=== PATIENT | female | born 1990 | race Caucasian/White ===

== ENCOUNTER 2016-11-15 08:50 | Emergency (ER) | payer OTHER ==
[2016-11-15 08:56] VITALS: BP 110/62; PULSE 77; TEMP 98.2; BMI 21.4
--- NOTE | 2016-11-15 09:13 | PDOC ---
History of Present Illness - General Chief Complaint: Pain, Acute Stated Complaint: FALL/ RT KNEE Time Seen by Provider: 11/15/16 09:10 History Source: Patient Exam Limitations: No Limitations - History of Present Illness Initial Comments: 11/15/16 09:10 11/15/16 09:13 Status post fall 4 days ago , states fell down a flight of stairs with sort of a twisting and turning movement. Since that time has sustained some bruising which were not significant however right knee pain has felt painful and difficult to walk on. Has a bruise to the medial aspect of her right knee and feels some mild instability. Came to emergency department for evaluation. Denies head injury, neck injury, or other extremity issues. 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 Denies intoxication or other tripping mechanism., 11/15/16 09:37 Timing/Duration: reports: constant Severity: Yes: mild, moderate Location: reports: extremities (right knee ) Past History - Travel Traveled outside of the country in the last 30 days: No Close contact w/someone who was outside of country & ill: No - Past Medical History Allergies/Adverse Reactions: Allergies Allergy/AdvReac Type Severity Reaction Status Date / Time No Known Allergies Allergy Verified 11/15/16 08:56 Home Medications: Ambulatory Orders Cefadroxil [Cefadroxil] 500 mg PO BID 04/25/16 Anemia: Yes Asthma: No Cancer: No Cardiac Disorders: No Diabetes: No HTN: No Seizures: No Thyroid Disease: No - Surgical History Abdominal Surgery: Yes (UMBILICAL HERNIA.) - Immunization History Immunization Up to Date: Yes - Psycho/Social/Smoking Cessation Hx Anxiety: No Suicidal Ideation: No Smoking Status: No Smoking History: Never smoked Have you smoked in the past 12 months: No Number of Cigarettes Smoked Daily: 1 Information on smoking cessation initiated: No Hx Alcohol Use: No Drug/Substance Use Hx: No Substance Use Type: None Hx Substance Use Treatment: No Review of Systems - Review of Systems Able to Perform ROS?: Yes Is the patient limited Swazi proficient: Yes Constitutional: Yes: Symptoms Reported, See HPI, Malaise. No: Fever HEENTM: No: Symptoms Reported Respiratory: No: Symptoms reported Musculoskeletal: Yes: Symptoms Reported, See HPI, Joint Pain, Joint Swelling, Muscle Pain (right knee ) Neurological: Yes: See HPI. No: Symptoms reported, Numbness, Paresthesia All Other Systems: Reviewed and Negative *Physical Exam - Vital Signs Last Vital Signs Temp Pulse Resp BP Pulse Ox 98.2 F 77 18 110/62 100 11/15/16 08:54 11/15/16 08:54 11/15/16 08:54 11/15/16 08:54 11/15/16 08:54 - Physical Exam General Appearance: Yes: Nourished, Appropriately Dressed, Apparent Distress, Mild Distress HEENT: positive: [place], Normal ENT Inspection Neck: positive: Supple. negative: Tender Musculoskeletal: positive: Decreased Range of Motion. negative: Normal Inspection, CVA Tenderness Extremity: positive: Normal Capillary Refill, Tender (2 medial aspect of right knee with ecchymosis noted and swelling to the superior aspect of distal femoral condyle. No crepitus or step-offs, patella is mobile but has some swelling to the knee joint. Range of motion is limited secondary to this pain, ambulatory but walks with limp. Neurovascular intact to foot and lower extremity.). negative: Normal Inspection, Normal Range of Motion Integumentary: positive: Normal Color, Ecchymosis, Bruising Neurologic: positive: oracle manager II-XII NML intact, Fully Oriented, Alert, Normal Mood/ Affect, Normal Response, Motor Strength 5/5 *DC/Admit/Observation/Transfer Diagnosis at time of Disposition: Knee contusion Qualifiers: Encounter type: initial encounter Laterality: right Qualified Code(s): S80.01XA - Contusion of right knee, initial encounter Knee MCL sprain Qualifiers: Encounter type: initial encounter Laterality: right Qualified Code(s): S83.411A - Sprain of medial collateral ligament of right knee, initial encounter - Discharge Dispostion Disposition: HOME Condition at time of disposition: Stable Admit: No - Referrals Referrals: Elliot Sifuentes MD [Primary Care Provider] - Judson Hemphill MD [Staff Physician] - - Patient Instructions Printed Discharge Instructions: DI for Knee Sprain Additional Instructions: Rest, ice to area on and off for 15 minutes 4-6 times a day Avoid heavy lifting or exercise until pain and swelling is resolved or until further directed Keep area highly elevated to reduce swelling Use splints/Jose wrap as directed Followup with orthopedist in one to 2 days if not improving, if significantly improved may wait one week for followup with orthopedist May use ibuprofen 2-200 mg tablets every 6 hours as needed for pain
== END 2016-11-15 10:16 | disposition home or self-care (01) ==
LOC: JERFT 08:50
PROC: 2W3LX1Z Immobilization of Right Lower Extremity using Splint (ICD-10-PCS; principal; 2016-11-15)
DX: S93.411A Sprain of calcaneofibular ligament of right ankle, initial encounter (principal); S80.01XA Contusion of right knee, initial encounter; W10.8XXA Fall (on) (from) other stairs and steps, initial encounter; Y93.89 Activity, other specified
CPT/HCPCS: 29505; 73562-TC-RT; 99281-25

== ENCOUNTER 2016-12-18 19:38 | Emergency (ER) | payer OTHER ==
[2016-12-18 19:50] VITALS: BP 117/63; PULSE 90; TEMP 98; BMI 21.8
[2016-12-18] MEDS ORDERED: NAPROXEN 500 MG TABLET (FP) PO ONE (21:38)
[2016-12-18] MEDS ORDERED: NAPROXEN 500 MG TABLET (FP) ONE (21:39)
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
== END 2016-12-18 22:25 | disposition home or self-care (01) ==
LOC: JERFT 19:38
DX: M54.9 Dorsalgia, unspecified (principal); S76.919A Strain of unspecified muscles, fascia and tendons at thigh level, unspecified thigh, initial encounter; S13.4XXA Sprain of ligaments of cervical spine, initial encounter; V43.52XA Car driver injured in collision with other type car in traffic accident, initial encounter; W22.10XA Striking against or struck by unspecified automobile airbag, initial encounter; Y93.89 Activity, other specified; Y92.410 Unspecified street and highway as the place of occurrence of the external cause
CPT/HCPCS: 99281-25

== ENCOUNTER 2017-01-08 16:35 | Emergency (ER) | payer OTHER ==
[2017-01-08 16:45] VITALS: BP 111/77; TEMP 98.1; BMI 21.4
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
[2017-01-08 16:59] LABS: BASOPHIL 0.3 % (0-2.0); EOSINOPHIL 0.1 % (0-4.5); MCH 23.3 pg (25.7-33.7); MCHC 31.5 g/dl (32.0-36.0); MEAN PLT VOLUME 7.9 fl (7.5-11.1); NEUTROPHILS 72.5 % (42.8-82.8); PLATELET COUNT 259 K/MM3 (134-434); RDW 16.5 % (11.6-15.6); WHITE BLOOD COUNT 11.5 K/mm3 (4.0-10.0)
[2017-01-08 17:38] LABS: ALBUMIN 4.1 g/dl (3.4-5.0); ALK PHOS 69 U/L (45-117); ANION GAP 7 (8-16); BILIRUBIN,TOTAL 0.4 mg/dL (0.2-1.0); CO2 32 mmol/L (21-32); COCKROFT - GAULT 124.9415; CREATININE 0.6 mg/dL (0.55-1.02); GLUCOSE,RANDOM 91 mg/dL (74-106); SGOT/AST 18 U/L (15-37); SGPT/ALT 29 U/L (12-78); TOT PROT 8.1 g/dl (6.4-8.2)
[2017-01-08] MEDS ORDERED: SODIUM CHLORIDE 1,000 ML IV STA (18:16)
[2017-01-08] MEDS ORDERED: ONDANSETRON 4 MG/2 ML VIAL IVPUSH ONE (18:17)
[2017-01-08] MEDS ORDERED: KETOROLAC TROMETHAMINE 30 MG/1 ML VIAL IVPUSH ONE (18:18)
[2017-01-08] MEDS ORDERED: CEFTRIAXONE 1 GM in DEXTROSE 5%-WATER - 50 ML IVPB ONE (18:18)
[2017-01-08 18:26] VITALS: PULSE 88
--- NOTE | 2017-01-08 18:30 | PDOC ---
History of Present Illness - General History Source: Patient Exam Limitations: No Limitations - History of Present Illness Initial Comments: 01/08/17 18:34 The patient is a 26 year old female, LMP December 15, with no significant past medical history, who presents to the ER with nausea, dizziness, and left facial swelling s/p left premolar root canal. Patient states she went to her dentist today for a root canal. Patient was given percocets and antibiotics. Patient took her percocet medication 5 hours ago, and reports onset of nausea and dizziness after taking medication. Patient also reports left facial swelling s/ p root canal surgery. Denies vomiting Denies syncope Denies fever, chills, cough Denies paresthesia and numbness PCP: Dr. Sifuentes Allergies: NKDA <Juanita Pelaez - Last Filed: 01/08/17 19:07> <Karolina Banks - Last Filed: 01/08/17 19:41> - General Chief Complaint: Syncope/Near Syncope Stated Complaint: SYNCOPE/NEAR SYNCOPE Time Seen by Provider: 01/08/17 16:43 Past History <Juanita Pelaez - Last Filed: 01/08/17 19:07> - Past Medical History Anemia: Yes Asthma: No Cancer: No Cardiac Disorders: No Diabetes: No HTN: No Seizures: No Thyroid Disease: No - Surgical History Abdominal Surgery: Yes (UMBILICAL HERNIA.) - Immunization History Immunization Up to Date: Yes - Psycho/Social/Smoking Cessation Hx Anxiety: No Suicidal Ideation: No Smoking Status: No Smoking History: Never smoked Have you smoked in the past 12 months: No Number of Cigarettes Smoked Daily: 1 Information on smoking cessation initiated: No Hx Alcohol Use: No Drug/Substance Use Hx: No Substance Use Type: None Hx Substance Use Treatment: No <Karolina Banks - Last Filed: 01/08/17 19:41> - Past Medical History Allergies/Adverse Reactions: Allergies Allergy/AdvReac Type Severity Reaction Status Date / Time No Known Allergies Allergy Verified 01/08/17 16:42 Home Medications: Ambulatory Orders Unobtainable 01/08/17 Review of Systems - Review of Systems Able to Perform ROS?: Yes Comments:: 01/08/17 18:34 CONSTITUTIONAL: Absent: fever, no chills, no fatigue EYES: Absent: visual changes ENT: Present: (+) left facial swelling Absent: ear pain, no sore throat CARDIOVASCULAR: Absent: chest pain, no palpitations RESPIRATORY: Absent: cough, no SOB GI: Absent: (+) nausea. abdominal pain, no vomiting, no constipation, no diarrhea GENITOURINARY: Absent: dysuria, no frequency, no hematuria MUSCULOSKELETAL: Absent: back pain, no arthralgia, no myalgia SKIN: Absent: rash NEURO: Present: (+) dizziness Absent: headache <GaozzyJuanita - Last Filed: 01/08/17 19:07> *Physical Exam - Vital Signs Last Vital Signs Temp Pulse Resp BP Pulse Ox 98.1 F 88 18 111/77 100 01/08/17 16:42 01/08/17 16:42 01/08/17 16:42 01/08/17 16:42 01/08/17 16:42 - Physical Exam Comments: 01/08/17 18:35 GENERAL: Well-appearing, well-nourished. No apparent distress. HEENT: Left maxillary buccal vestibule swollen . Premolars tooth abscess for pulpotomy. Swelling is from the zygoma to the jaw line. Normocephalic, atraumatic. PERRL, EOM intact. CARDIOVASCULAR: Normal S1, S2. Regular rate and rhythm. PULMONARY: Clear to auscultation bilaterally. ABDOMEN: Soft, non-distended, non-tender. EXTREMITIES: Normal ROM in all four extremities. No gross deformities. SKIN: Warm, dry. No rash NEUROLOGICAL: No focal neurological deficits. <GaozzyJuanita - Last Filed: 01/08/17 19:07> - Vital Signs Last Vital Signs Temp Pulse Resp BP Pulse Ox 98.1 F 88 18 111/77 100 01/08/17 16:42 01/08/17 16:42 01/08/17 16:42 01/08/17 16:42 01/08/17 16:42 <Karolina Banks - Last Filed: 01/08/17 19:41> Heart Score/ECG Review - Electrocardiogram EKG: Normal (The EKG is read and reported by Dr. Banks: Normal sinus rhythm. Vent rate 77bpm, MN interval 124 ms, QRS duration 76 ms) <GaozzyJuanita - Last Filed: 01/08/17 19:07> ED Treatment Course - LABORATORY CBC & Chemistry Diagram: 01/08/17 16:50 01/08/17 16:50 - ADDITIONAL ORDERS Additional order review: Laboratory Results 01/08/17 01/08/17 16:50 16:50 Sodium 136 Potassium 4.5 D Chloride 97 L Carbon Dioxide 32 Anion Gap 7 L BUN 15 D Creatinine 0.6 Creat Clearance w eGFR > 60 Random Glucose 91 Calcium 9.0 Total Bilirubin 0.4 D AST 18 D ALT 29 D Alkaline Phosphatase 69 Total Protein 8.1 Albumin 4.1 Serum , Qual Negative 01/08/17 16:50 RBC 4.74 MCV 74.0 L MCHC 31.5 L RDW 16.5 H MPV 7.9 D Neutrophils % 72.5 Lymphocytes % 19.2 D Monocytes % 7.9 Eosinophils % 0.1 Basophils % 0.3 <Juanita Pelaez - Last Filed: 01/08/17 19:07> - LABORATORY CBC & Chemistry Diagram: 01/08/17 16:50 01/08/17 16:50 - ADDITIONAL ORDERS Additional order review: Laboratory Results 01/08/17 01/08/17 16:50 16:50 Sodium 136 Potassium 4.5 D Chloride 97 L Carbon Dioxide 32 Anion Gap 7 L BUN 15 D Creatinine 0.6 Creat Clearance w eGFR > 60 Random Glucose 91 Calcium 9.0 Total Bilirubin 0.4 D AST 18 D ALT 29 D Alkaline Phosphatase 69 Total Protein 8.1 Albumin 4.1 Serum , Qual Negative 01/08/17 16:50 RBC 4.74 MCV 74.0 L MCHC 31.5 L RDW 16.5 H MPV 7.9 D Neutrophils % 72.5 Lymphocytes % 19.2 D Monocytes % 7.9 Eosinophils % 0.1 Basophils % 0.3 <Karolina Banks - Last Filed: 01/08/17 19:41> *DC/Admit/Observation/Transfer - Attestations Scribe Attestion: 01/08/17 18:37 Documentation prepared by Juanita Pelaez, acting as medical assistant float for Karolina Banks MD. <Juanita Pelaez - Last Filed: 01/08/17 19:07> <Karolina Banks - Last Filed: 01/08/17 19:41> Diagnosis at time of Disposition: Toothache, Dental abscess - Discharge Dispostion Disposition: HOME Condition at time of disposition: Stable - Referrals Referrals: Elliot Sifuentes MD [Primary Care Provider] - - Patient Instructions Printed Discharge Instructions: DI for Dental Pain, Tooth Abscess Additional Instructions: Please keep your appointment with your dentist tomorrow and take antibiotics as already prescribed by your dentist Take Motrin for pain Rest Liquid or soft food diet
[2017-01-08] MEDS ORDERED: KETOROLAC TROMETHAMINE 30 MG/1 ML VIAL ONE (18:36)
[2017-01-08] MEDS ORDERED: CEFTRIAXONE 50 ML ONE (18:37)
[2017-01-08] MEDS ORDERED: ONDANSETRON 4 MG/2 ML VIAL ONE (18:37)
--- NOTE | 2017-01-09 11:50 | EKG ---
Test Reason : Blood Pressure : / mmHG Vent. Rate : 077 BPM Atrial Rate : 077 BPM P-R Int : 124 ms QRS Dur : 076 ms QT Int : 380 ms P-R-T Axes : 059 060 053 degrees QTc Int : 430 ms NORMAL SINUS RHYTHM NORMAL ECG NO PREVIOUS ECGS AVAILABLE Confirmed by JORJE PEÑA MD ([id number]) on 01/09/2017 11:49:50 AM Referred By: Confirmed By:JORJE PEÑA MD
== END 2017-01-08 19:52 | disposition home or self-care (01) ==
LOC: JER 16:35
PROC: 3E03329 Introduction of Other Anti-infective into Peripheral Vein, Percutaneous Approach (ICD-10-PCS; principal; 2017-01-08)
PROC: 3E0333Z Introduction of Anti-inflammatory into Peripheral Vein, Percutaneous Approach (ICD-10-PCS; 2017-01-08)
PROC: 3E033GC Introduction of Other Therapeutic Substance into Peripheral Vein, Percutaneous Approach (ICD-10-PCS; 2017-01-08)
PROC: 3E0337Z Introduction of Electrolytic and Water Balance Substance into Peripheral Vein, Percutaneous Approach (ICD-10-PCS; 2017-01-08)
DX: K08.89 Other specified disorders of teeth and supporting structures (principal); K04.7 Periapical abscess without sinus
CPT/HCPCS: 36415; 80053; 84703; 85025; 93005; 93010; 99283-25

== ENCOUNTER 2017-01-11 08:44 | Emergency (ER) | payer OTHER ==
[2017-01-11 09:10] VITALS: BP 122/83; PULSE 89; TEMP 98.7; BMI 21.8
--- NOTE | 2017-01-11 09:18 | PDOC ---
History of Present Illness <Samina Churchill - Last Filed: 01/11/17 09:48> - General History Source: Patient Exam Limitations: No Limitations - History of Present Illness Initial Comments: 01/11/17 09:54 The patient is a 26 year old female with no significant past medical history, seen in the ER on 01/08 for tooth pain, presenting to the Emergency Department with left sided tooth pain, and left facial swelling s/p left premolar root canal on Sunday. The patient reports that she had a root canal on Sunday morning , and had a near syncopal episode after returning home. She admits that she came to the ER after the episode and was diagnosed with an abscess. She states that on Sunday she went to a different dentist for a second opinion who instructed her to continue the antibiotics and rest. The patient is here today due to pain at the site of the root canal as well as left sided facial swelling. She admits to taking Percocet for the pain on Sunday, which is prescribed to her for chronic back pain, but denies taking Percocet today. The patient denies nausea, vomiting, and diarrhea. Patient denies fever, cough, and chills. Patient denies headache, or loss of consciousness. Patient denies chest pain, palpitations, and shortness of breath. PCP: Dr. Sifuentes <Leticia Gillespie - Last Filed: 01/11/17 09:57> - General Chief Complaint: Pain Stated Complaint: TOOTHACHE Time Seen by Provider: 01/11/17 09:17 Past History - Past Medical History Anemia: Yes Asthma: No Cancer: No Cardiac Disorders: No Diabetes: No HTN: No Seizures: No Thyroid Disease: No - Surgical History Abdominal Surgery: Yes (UMBILICAL HERNIA.) - Immunization History Immunization Up to Date: Yes - Psycho/Social/Smoking Cessation Hx Anxiety: No Suicidal Ideation: No Smoking Status: No Smoking History: Never smoked Have you smoked in the past 12 months: No Number of Cigarettes Smoked Daily: 1 Information on smoking cessation initiated: No Hx Alcohol Use: No Drug/Substance Use Hx: No Substance Use Type: None Hx Substance Use Treatment: No <Samina Churchill - Last Filed: 01/11/17 09:48> <Leticia Gillespie - Last Filed: 01/11/17 09:57> - Past Medical History Allergies/Adverse Reactions: Allergies Allergy/AdvReac Type Severity Reaction Status Date / Time No Known Allergies Allergy Verified 01/11/17 09:08 Home Medications: Ambulatory Orders Oxycodone HCl/Acetaminophen [Percocet 10-325 mg Tablet] 1 each PO QID PRN Review of Systems - Review of Systems Able to Perform ROS?: Yes Comments:: 01/11/17 09:55 CONSTITUTIONAL: Absent: fever, no chills, no fatigue EYES: Absent: visual changes ENT: Present: + left premolar pain, + left side facial swelling Absent: ear pain, no sore throat CARDIOVASCULAR: Absent: chest pain, no palpitations RESPIRATORY: Absent: cough, no SOB GI: Absent: abdominal pain, no nausea, no vomiting, no constipation, no diarrhea GENITOURINARY: Absent: dysuria, no frequency, no hematuria MUSCULOSKELETAL: Absent: back pain, no arthralgia, no myalgia SKIN: Absent: rash NEURO: Absent: headache <Leticia Gillespie - Last Filed: 01/11/17 09:57> *Physical Exam - Vital Signs Last Vital Signs Temp Pulse Resp BP Pulse Ox 98.7 F 89 17 122/83 99 01/11/17 09:03 01/11/17 09:03 01/11/17 09:03 01/11/17 09:03 01/11/17 09:03 <Samina Churchill - Last Filed: 01/11/17 09:48> - Vital Signs Last Vital Signs Temp Pulse Resp BP Pulse Ox 98.7 F 89 17 122/83 99 01/11/17 09:03 01/11/17 09:03 01/11/17 09:03 01/11/17 09:03 01/11/17 09:03 - Physical Exam Comments: 01/11/17 09:56 GENERAL: Well-appearing, well-nourished. No apparent distress. HEENT: Mild swelling of left cheek. Left premolar tooth broken with no surrounding swelling, or trismus. Minimal tenderness. Atraumatic. PERRL, EOM intact. EXTREMITIES: Normal ROM in all four extremities. No gross deformities. SKIN: Warm, dry. No rash. NEUROLOGICAL: No focal neurological deficits. <Leticia Gillespie - Last Filed: 01/11/17 09:57> ED Treatment Course - Medications Given in the ED: ED Medications Discontinued Medications Generic Name Dose Route Start Last Admin Trade Name Andrew PRN Reason Stop Dose Admin Oxycodone/Acetaminophen 2 combo 01/11/17 09:34 01/11/17 09:49 Percocet 5/325 - PO 01/11/17 09:35 2 combo ONCE ONE Administration <Leticia Gillespie - Last Filed: 01/11/17 09:57> Medical Decision Making - Medical Decision Making 01/11/17 09:48 Pt presents to the ED complaining of persistent pain and swelling after root canal on Sunday. Seen in the ED on Sunday, given IV antibiotics for abscess and sent home with PO antibiotics. Presents today because she still has pain and swelling. On exam, patient has mild swelling of the left check, with minimal tenderness and no trismus. There are no signs of worsening infection. Patient already has percoset at home that she can take for pain. Will give pain control in the ED and discharge home. Patient requesting referral to new dentist--given names of dentists for follow up. <Samina Churchill - Last Filed: 01/11/17 09:48> *DC/Admit/Observation/Transfer - Discharge Dispostion Admit: No <Samina Churchill - Last Filed: 01/11/17 09:48> - Attestations Scribe Attestion: 01/11/17 09:56 Documentation prepared by Leticia Gillespie, acting as medical records tech for Samina Churchill MD. <Leticia Gillespie - Last Filed: 01/11/17 09:57> Diagnosis at time of Disposition: Pain, dental - Referrals Referrals: Elliot Sifuentes MD [Primary Care Provider] - Noah Bazzi [Staff Physician] - Noamn Levin [Staff Physician] - Viktor Tamayo [Non Staff, Medical] - - Patient Instructions Printed Discharge Instructions: DI for Dental Pain
[2017-01-11] MEDS ORDERED: OXYCODONE/APAP 5/325MG COMBO TABLET PO ONE (09:34)
[2017-01-11] MEDS ORDERED: OXYCODONE/APAP 5/325MG COMBO TABLET ONE (09:44)
== END 2017-01-11 10:04 | disposition home or self-care (01) ==
LOC: JER 08:44
DX: K08.89 Other specified disorders of teeth and supporting structures (principal)
CPT/HCPCS: 99281-25

== ENCOUNTER 2018-10-27 12:43 | Observation (INO) | payer OTHER ==
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
[2018-10-27] MEDS ORDERED: SODIUM CHLORIDE 1,000 ML IV STA (13:45)
[2018-10-27 14:22] LABS: BASO % 0.4 % (0-2.0); EOS % 0.3 % (0-4.5); HEMATOCRIT 37.4 % (32.4-45.2); HEMOGLOBIN 11.8 GM/dL (10.7-15.3); MCH 24.3 pg (25.7-33.7); MCHC 31.5 g/dl (32.0-36.0); MEAN CELL VOLUME 77.2 fl (80-96); MEAN PLT VOLUME 8.5 fl (7.5-11.1); MONO % 5.1 % (3.8-10.2); NEUT % 83.2 % (42.8-82.8); PLATELET COUNT 230 K/MM3 (134-434); RBC 4.85 M/mm3 (3.60-5.2); WHITE BLOOD COUNT 8.7 K/mm3 (4.0-10.0)
[2018-10-27 14:42] LABS: EPI CELLS 13.9 /HPF (0-5); URINE APPEARANCE CLEAR; URINE BACTERIA 289.6 /hpf (NEGATIVE); URINE BILIRUBIN NEGATIVE (NEGATIVE); URINE CASTS 32 /hpf (0-8); URINE COLOR YELLOW; URINE GLUCOSE (UA) NEGATIVE (NEGATIVE); URINE KETONE TRACE (NEGATIVE); URINE LEUK ESTERASE 1+ (NEGATIVE); URINE NITRITE NEGATIVE (NEGATIVE); URINE PROTEIN TRACE (NEGATIVE); URINE RBC 9 /hpf (0-4); URINE WBC 32 /hpf (0-5)
[2018-10-27 15:01] LABS: ALBUMIN 3.7 g/dl (3.4-5.0); ALK PHOS 67 U/L (45-117); ANION GAP 8 MMOL/L (8-16); BILIRUBIN,TOTAL 0.3 mg/dL (0.2-1); BLOOD UREA NITROGEN 13 mg/dL (7-18); CALCIUM 8.5 mg/dL (8.5-10.1); CHLORIDE 107 mmol/L (98-107); CO2 27 mmol/L (21-32); CREATININE 0.6 mg/dL (0.55-1.3); GLUCOSE,RANDOM 98 mg/dL (74-106); LIPASE 170 U/L (73-393); SGOT/AST 15 U/L (15-37); SGPT/ALT 17 U/L (13-61); SODIUM 142 mmol/L (136-145); TOT PROT 7.6 g/dl (6.4-8.2)
[2018-10-27] MEDS ORDERED: CYCLOBENZAPRINE HCL 10 MG TABLET (FP) PO ONE (19:21)
[2018-10-27] MEDS ORDERED: ACETAMINOPHEN 325 MG TABLET (FP) PO ONE (19:45)
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
[2018-10-27] MEDS ORDERED: CYCLOBENZAPRINE HCL 10 MG TABLET (FP) ONE ×2 (20:32→21:42)
[2018-10-27] MEDS ORDERED: DOCUSATE SODIUM 100 MG CAPSULE (FP) PO PRN (21:30)
[2018-10-27] MEDS ORDERED: ACETAMINOPHEN 325 MG TABLET (FP) PO PRN (21:33)
[2018-10-27] MEDS ORDERED: ACETAMINOPHEN 325 MG TABLET (FP) ONE (21:42)
[2018-10-27] MEDS ORDERED: fentaNYL 25mcg/hr PATCH.TD72 ONE (21:42)
[2018-10-27] MEDS ORDERED: fentaNYL 25mcg/hr PATCH.TD72 TD SCH (21:45)
[2018-10-27] MEDS ORDERED: CEFTRIAXONE 1 GM in DEXTROSE 5%-WATER - 50 ML IVPB ONE (22:00)
[2018-10-27] MEDS ORDERED: CEFTRIAXONE 1 GM/50 ML BAG ONE (23:14)
[2018-10-27] MEDS ORDERED: oxyCODONE HCL 5 MG TABLET ONE (23:14)
[2018-10-27] MEDS: oxyCODONE HCL 5 MG TABLET PO PRN (23:21)
[2018-10-28 06:08] LABS: HEMATOCRIT 34.1 % (32.4-45.2); MEAN PLT VOLUME 8.8 fl (7.5-11.1); WHITE BLOOD COUNT 7.6 K/mm3 (4.0-10.0)
[2018-10-28 06:12] LABS: BASO % 0.4 % (0-2.0); EOS % 1.1 % (0-4.5); HEMOGLOBIN 10.9 GM/dL (10.7-15.3); LYMPH % 24.1 % (8-40); MCH 24.9 pg (25.7-33.7); MCHC 32.1 g/dl (32.0-36.0); MEAN CELL VOLUME 77.7 fl (80-96); MONO % 8.5 % (3.8-10.2); NEUT % 65.9 % (42.8-82.8); PLATELET COUNT 222 K/MM3 (134-434); RBC 4.39 M/mm3 (3.60-5.2); RDW 15.1 % (11.6-15.6)
[2018-10-28 06:25] LABS: ANION GAP 7 MMOL/L (8-16); BLOOD UREA NITROGEN 11 mg/dL (7-18); CALCIUM 8.2 mg/dL (8.5-10.1); CHLORIDE 106 mmol/L (98-107); CO2 27 mmol/L (21-32); CREATININE 0.5 mg/dL (0.55-1.3); GLUCOSE,RANDOM 94 mg/dL (74-106); POTASSIUM 3.5 mmol/L (3.5-5.1); SODIUM 140 mmol/L (136-145)
--- NOTE | 2018-10-28 09:59 | EKG ---
Test Reason : Blood Pressure : / mmHG Vent. Rate : 096 BPM Atrial Rate : 096 BPM P-R Int : 118 ms QRS Dur : 082 ms QT Int : 352 ms P-R-T Axes : 071 057 045 degrees QTc Int : 444 ms NORMAL SINUS RHYTHM NORMAL ECG WHEN COMPARED WITH ECG OF 08-JAN-2017 16:50, NO SIGNIFICANT CHANGE WAS FOUND Confirmed by JORJE PEÑA MD ([id number]) on 10/28/2018 9:59:25 AM Referred By: Confirmed By:JORJE PEÑA MD
[2018-10-28] MEDS ORDERED: CEFTRIAXONE 1 GM in DEXTROSE 5%-WATER - 50 ML IVPB SCH (10:00)
[2018-10-28] MEDS ORDERED: CEFTRIAXONE 1 GM/50 ML BAG ONE (10:11)
[2018-10-28] MEDS ORDERED: oxyCODONE HCL 5 MG TABLET ONE (10:11)
[2018-10-28] MEDS: oxyCODONE HCL 5 MG TABLET PO PRN (10:28)
--- NOTE | 2018-10-28 11:06 | PN ---
Progress Note, Physician History of Present Illness: awake alert oriented in soft c collar complaining of back pain - Current Medication List Current Medications: Active Medications Acetaminophen (Tylenol -) 325 mg PO Q6H PRN PRN Reason: PAIN LEVEL 4 - 6 Docusate Sodium (Colace -) 100 mg PO Q12H PRN PRN Reason: CONSTIPATION Fentanyl (Duragesic 25mcg Patch -) 1 patch TD Q72H ALEX Stop: 11/03/18 21:44 Last Admin: 10/27/18 21:52 Dose: 1 patch Ceftriaxone Sodium 1 gm/ (Dextrose) 50 mls @ 100 mls/hr IVPB DAILY ALEX; Protocol Last Admin: 10/28/18 10:28 Dose: 100 mls/hr Miscellaneous (Duragesic Patch Waste) 1 each TD PRN PRN PRN Reason: PAIN Oxycodone HCl (Roxicodone -) 10 mg PO Q6H PRN PRN Reason: PAIN LEVEL 7 - 10 Last Admin: 10/28/18 10:28 Dose: 10 mg - Objective Vital Signs: Vital Signs Temperature 97.7 F 10/28/18 06:51 Pulse Rate 76 10/28/18 06:51 Respiratory Rate 18 10/28/18 06:51 Blood Pressure 109/76 10/28/18 06:51 O2 Sat by Pulse Oximetry (%) 100 10/28/18 06:51 Constitutional: Yes: Calm, Other Neck: Yes: Other (neck collar) Cardiovascular: Yes: Regular Rate and Rhythm, S1, S2 Respiratory: Yes: CTA Bilaterally Gastrointestinal: Yes: Normal Bowel Sounds, Soft Musculoskeletal: Yes: Back Pain (left lower back tenderness right midleg tenderness with ecchymosis), Other Edema: No Neurological: Yes: Alert, Oriented Labs: CBC, BMP 10/28/18 05:30 10/28/18 05:30 Problem List - Problems (1) Back pain Assessment/Plan: mRI of lumbar spine w/o contrast h/o chronic pain on percocet and fentanyl Code(s): M54.9 - DORSALGIA, UNSPECIFIED Qualifiers: Back pain location: back pain in unspecified location Chronicity: unspecified Back pain laterality: unspecified Qualified Code(s): M54.9 - Dorsalgia, unspecified (2) Cervical pain (neck) Assessment/Plan: NAMITA consult MRI of c spine Code(s): M54.2 - CERVICALGIA (3) Cystitis Assessment/Plan: awaiting cultures iv rocephin Code(s): N30.90 - CYSTITIS, UNSPECIFIED WITHOUT HEMATURIA
[2018-10-28] MEDS ORDERED: BACITRACIN 0.9 GM PACKET ONE (11:58)
--- NOTE | 2018-10-28 13:57 | PN ---
Progress Note (short form) - Note Progress Note: spoke to dr shaffer he wants MRI of the neck and lumbar spine he will speak with radiology Problem List - Problems (1) Back pain Code(s): M54.9 - DORSALGIA, UNSPECIFIED Qualifiers: Back pain location: back pain in unspecified location Chronicity: unspecified Back pain laterality: unspecified Qualified Code(s): M54.9 - Dorsalgia, unspecified (2) Cervical pain (neck) Code(s): M54.2 - CERVICALGIA (3) Cystitis Code(s): N30.90 - CYSTITIS, UNSPECIFIED WITHOUT HEMATURIA
[2018-10-28 16:53] VITALS: BP 102/61; PULSE 78; TEMP 98.3; BMI 21.1
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
[2018-10-30] MEDS ORDERED: FENTANYL PATCH WASTE TD PRN (21:29)
== END 2018-10-28 19:24 | disposition left against medical advice (07) ==
LOC: JER 12:43 → JERBED 20:21 → J8W 10-28 16:35
PROVIDERS: ADMIT Family Medicine; ATTEND Family Medicine
PROC: BH4BZZZ Ultrasonography of Chest Wall (ICD-10-PCS; principal; 2018-10-27)
PROC: 3E03329 Introduction of Other Anti-infective into Peripheral Vein, Percutaneous Approach (ICD-10-PCS; 2018-10-27)
PROC: 3E033NZ Introduction of Analgesics, Hypnotics, Sedatives into Peripheral Vein, Percutaneous Approach (ICD-10-PCS; 2018-10-27)
PROC: 3E0337Z Introduction of Electrolytic and Water Balance Substance into Peripheral Vein, Percutaneous Approach (ICD-10-PCS; 2018-10-27)
DX: M54.2 Cervicalgia (principal); M54.6 Pain in thoracic spine; N30.90 Cystitis, unspecified without hematuria; V43.52XA Car driver injured in collision with other type car in traffic accident, initial encounter; Y93.89 Activity, other specified; Y92.410 Unspecified street and highway as the place of occurrence of the external cause
CPT/HCPCS: 36415; 70450-TC; 71260-TC; 72125-TC; 72141-TC; 72148-TC; 73090-TC-LT-FY; 73560-TC-RT-FY; 73590-TC-RT-FY; 74177-TC; 80048; 80053; 80307; 81003; 83690; 84703; 85025; 93005; 93010; 99284-25; G0378; J7030

== ENCOUNTER 2019-06-06 20:51 | Emergency (ER) | payer OTHER ==
[2019-06-06] MEDS ORDERED: ALPRAZolam 1 MG TABLET PO PRN (20:57)
--- NOTE | 2019-06-06 20:57 | PDOC ---
Rapid Medical Evaluation Medical Evaluation: Allergies Allergy/AdvReac Type Severity Reaction Status Date / Time No Known Allergies Allergy Verified 10/27/18 13:10 I have performed a brief in-person evaluation of this patient. The patient presents with a chief complaint of: C/O panic attack today; hx of panic disorder (is not on meds); used to be on Ativan in the past, but stopped taking it and stopped seeing psychiatrist around a year ago; has been having URI sxs x 2 days Pertinent physical exam findings: Hyperventilating I have ordered the following: PO Ativan The patient will proceed to the ED for further evaluation. 06/06/19 20:54
[2019-06-06 20:58] VITALS: BP 123/87; PULSE 83; TEMP 98; BMI 19.3
[2019-06-06] MEDS ORDERED: ALPRAZolam 1 MG TABLET ONE (21:12)
--- NOTE | 2019-06-06 22:01 | PDOC ---
History of Present Illness - General Chief Complaint: Psychiatric Stated Complaint: PANIC ATTACK Time Seen by Provider: 06/06/19 20:59 History Source: Patient - History of Present Illness Initial Comments: 06/06/19 21:56 28 yo F PMH of chronic lumbar pain presented to the ED with acute shortness of breath and body tingling beginning 1 hour prior to arrival. Pt states that for 2 days she has been having sinus congestion, sore throat, weakness, sweating, nausea. She states that one hour prior to arrival she had a conflict with family and became short of breath and having body tingling. She states she had similar manifestations 2 years ago and was told it was an anxiety attack. Pt states at the moment, she feels better. She denies feeling like her throat was closing. She denies fevers, vomiting, dysuria. Past History - Travel Traveled outside of the country in the last 30 days: No Close contact w/someone who was outside of country & ill: No - Past Medical History Allergies/Adverse Reactions: Allergies Allergy/AdvReac Type Severity Reaction Status Date / Time No Known Allergies Allergy Verified 06/06/19 20:58 Home Medications: Ambulatory Orders Oxycodone HCl/Acetaminophen [Percocet 10-325 mg Tablet] 1 each PO Q4HWA PRN Fentanyl 1 each TD Q3D 10/27/18 Anemia: Yes Asthma: No Cancer: No Cardiac Disorders: No COPD: No Diabetes: No HTN: No Psychiatric Problems: Yes (panic, anxiety) Seizures: No Thyroid Disease: No - Surgical History Abdominal Surgery: Yes (UMBILICAL HERNIA.) - Immunization History Immunization Up to Date: Yes - Psycho Social/Smoking Cessation Hx Smoking Status: No Smoking History: Never smoked Have you smoked in the past 12 months: No Number of Cigarettes Smoked Daily: 1 Hx Alcohol Use: No Drug/Substance Use Hx: No Substance Use Type: None Hx Substance Use Treatment: No Review of Systems - Review of Systems Able to Perform ROS?: Yes Constitutional: Yes: Diaphoresis. No: Chills, Fever HEENTM: Yes: Nose Congestion, Throat Pain. No: Mouth Swelling Respiratory: Yes: Cough, Shortness of Breath, Wheezing, Productive cough. No: Hemoptysis Cardiac (ROS): Yes: Chest Tightness. No: Syncope ABD/GI: Yes: Nausea. No: Constipated, Diarrhea, Vomiting : No: Dysuria, Hematuria Musculoskeletal: Yes: Muscle Weakness Neurological: Yes: Tingling Psychiatric: Yes: Stressors *Physical Exam - Vital Signs Last Vital Signs Temp Pulse Resp BP Pulse Ox 98 F 83 18 123/87 100 06/06/19 20:55 06/06/19 20:55 06/06/19 20:55 06/06/19 20:55 06/06/19 20:55 - Physical Exam General Appearance: Yes: Nourished, Appropriately Dressed HEENT: positive: EOMI, Normal Voice, Pharyngeal Erythema, Tonsillar Erythema, Nasal Congestion. negative: Tonsillar Exudate, Sinus Tenderness Neck: positive: Supple, Lymphadenopathy (R) Respiratory/Chest: positive: Lungs Clear, Normal Breath Sounds. negative: Respiratory Distress, Accessory Muscle Use, Rhonchi, Stridor, Wheezing Cardiovascular: positive: Regular Rhythm, Regular Rate, S1, S2 Gastrointestinal/Abdominal: positive: Normal Bowel Sounds, Soft. 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 pt reports feeling better -mucinex, nsaids Discharge - Discharge Information Problems reviewed: Yes Clinical Impression/Diagnosis: Flu, Anxiety Condition: Good Disposition: HOME - Admission No - Follow up/Referral Referrals: Elliot Sifuentes MD [Primary Care Provider] - - Patient Discharge Instructions Patient Printed Discharge Instructions: DI for Viral Upper Respiratory Infection -- Adult, DI for Anxiety -- Adult Additional Instructions: You came into the hospital with difficulty breathing and throat pain. You likely had an anxiety attack. You also have a viral sinus infection. Please follow up with your primary care physician, Dr. Sifuentes, to follow your improvement. Please follow up with your psychiatrist to help manage your anxiety. You may take NSAIDs ( such as Advil), Mucinex, and continue with fluids to help your infection. If you have any new, worsening, or concerning symptoms please return to the ED. - Post Discharge Activity
[2019-06-06] MEDS ORDERED: guaiFENesin 600 MG TABLET.ER (FP) PO ONE (22:10)
== END 2019-06-06 22:39 | disposition home or self-care (01) ==
LOC: JER 20:51
DX: J11.1 Influenza due to unidentified influenza virus with other respiratory manifestations (principal); F41.0 Panic disorder [episodic paroxysmal anxiety]; M54.5 Low back pain; G89.29 Other chronic pain; J45.909 Unspecified asthma, uncomplicated
CPT/HCPCS: 99282-25

== ENCOUNTER 2019-07-07 09:25 | Emergency (ER) | payer OTHER ==
[2019-07-07 09:35] VITALS: TEMP 98.8; BMI 19.7
[2019-07-07] MEDS ORDERED: DIPHTH,PERTUSS(ACELL),TET 0.5 ML DISP.SYRIN IM ONE ×2 (10:49→11:28)
--- NOTE | 2019-07-07 11:32 | PDOC ---
History of Present Illness - General Chief Complaint: Laceration Stated Complaint: CUT FINGER Time Seen by Provider: 07/07/19 10:45 History Source: Patient Exam Limitations: No Limitations - History of Present Illness Initial Comments: 07/07/19 11:34 28 year old female with history of anxiety, surgical history of x 3, and breast augmentation presents with laceration to left 2nd digit sustained with scissors this am. Complaining of pain in finger, states unknown tetanus status Severity: Yes: mild Location: reports: hands (2nd left finger) Respiratory Risk Factors: reports: no cause identified Associated Symptoms: reports: denies symptoms Past History - Past Medical History Allergies/Adverse Reactions: Allergies Allergy/AdvReac Type Severity Reaction Status Date / Time No Known Allergies Allergy Verified 07/07/19 09:35 Home Medications: Ambulatory Orders Oxycodone HCl/Acetaminophen [Percocet 10-325 mg Tablet] 1 each PO Q4HWA PRN Fentanyl 1 each TD Q3D 10/27/18 Ibuprofen 600 mg PO TID #20 tablet 07/07/19 Anemia: Yes Asthma: No Cancer: No Cardiac Disorders: No COPD: No Diabetes: No HTN: No Psychiatric Problems: Yes (panic, anxiety) Seizures: No Thyroid Disease: No - Surgical History Abdominal Surgery: Yes (UMBILICAL HERNIA.) - Immunization History Immunization Up to Date: Yes - Psycho Social/Smoking Cessation Hx Smoking Status: No Smoking History: Never smoked Have you smoked in the past 12 months: No Number of Cigarettes Smoked Daily: 1 Hx Alcohol Use: No Drug/Substance Use Hx: No Substance Use Type: None Hx Substance Use Treatment: No Review of Systems - Review of Systems Able to Perform ROS?: Yes Is the patient limited [place] proficient: No Constitutional: No: Chills, Fever HEENTM: No: Double Vision, Nose Pain, Nose Congestion, Throat Swelling Respiratory: No: Orthopnea, Shortness of Breath, SOB at Rest ABD/GI: No: Abdominal Distended, Poor Appetite, Poor Fluid Intake, Indigestion : No: Hematuria, Incontinence, Urgency Musculoskeletal: No: Joint Pain, Muscle Weakness Integumentary: Yes: Other (laceration to left 2nd finger ) Neurological: No: Headache, Tingling Endocrine: No: Intolerance to Heat, Increased Hunger *Physical Exam - Vital Signs Last Vital Signs Temp Pulse Resp BP Pulse Ox 98.8 F 70 20 108/59 L 99 07/07/19 09:32 07/07/19 09:32 07/07/19 09:32 07/07/19 09:32 07/07/19 09:32 - Physical Exam General Appearance: Yes: Nourished, Appropriately Dressed HEENT: positive: Pharynx Normal Neck: positive: Supple. negative: Lymphadenopathy (R), Lymphadenopathy (L) Respiratory/Chest: positive: Lungs Clear Cardiovascular: positive: Regular Rate, S1, S2 Musculoskeletal: positive: Normal Inspection Extremity: positive: Normal Capillary Refill, Other (superficial laceration of 2nd digit, + sensation , + strength, no exposed tendons or bone) Neurologic: positive: Fully Oriented, Alert Procedures - Laceration/Wound Repair Left 2nd digit Wound Length: 2.6 to 5.0 cm Wound Explored: no foreign body present Wound's Depth, Shape: irregular Irrigated w/ Saline: Yes Betadine Prep: Yes Anesthesia: 2% Lidocaine w/ Epi Amount of Anesthetic (ccs): 5 Wound Debrided: minimal Wound Repaired With: Sutures Suture Size/Type: 4:0 Number of Sutures: 4 Layer Closure: No Sterile Dressing Applied: Yes Splint Applied: No Sling Applied: No Medical Decision Making - Medical Decision Making 07/07/19 11:37 28 year old female with history of anxiety, surgical history of x 3, and breast augmentation presents with laceration to left 2nd digit sustained with scissors this am. Complaining of pain in finger, states unknown tetanus status. Finger laceration tetanus vaccine laceration repair Discharge - Discharge Information Problems reviewed: Yes Clinical Impression/Diagnosis: Laceration of finger Qualifiers: Encounter type: initial encounter Finger: index finger Damage to nail status: without damage Foreign body presence: without foreign body Laterality: left Qualified Code(s): S61.211A - Laceration without foreign body of left index finger without damage to nail, initial encounter Condition: Good Disposition: HOME - Admission No - Additional Discharge Information Prescriptions: Ibuprofen 600 mg PO TID #20 tablet - Follow up/Referral Referrals: Elliot Sifuentes MD [Primary Care Provider] - Call tomorrow - Patient Discharge Instructions Patient Printed Discharge Instructions: DI for Laceration Repair Additional Instructions: Please keep finger dry and dressing in place for 24 hours After 24 hours may remove dressing and wash gently with mild soap and water Apply bacitracin once a day and cover with bandaid. Return to emergency room 07/17/2019 for suture removal - Post Discharge Activity Work/Back to School Note: Back to Work
[2019-07-07 11:52] VITALS: BP 119/77; PULSE 81
== END 2019-07-07 11:45 | disposition home or self-care (01) ==
LOC: JERFT 09:25
PROC: 3E0234Z Introduction of Serum, Toxoid and Vaccine into Muscle, Percutaneous Approach (ICD-10-PCS; principal; 2019-07-07)
PROC: 0HQGXZZ Repair Left Hand Skin, External Approach (ICD-10-PCS; 2019-07-07)
DX: S61.211A Laceration without foreign body of left index finger without damage to nail, initial encounter (principal); W27.2XXA Contact with scissors, initial encounter; Y93.89 Activity, other specified; Y92.89 Other specified places as the place of occurrence of the external cause; Y99.8 Other external cause status
CPT/HCPCS: 12002-25; 90471; 90715; 99282-25

== ENCOUNTER 2020-06-26 19:09 | Emergency (ER) | payer OTHER ==
[2020-06-26 19:32] VITALS: BP 117/76; PULSE 85; TEMP 97.8; BMI 21.2
[2020-06-26] MEDS ORDERED: KETOROLAC TROMETHAMINE 30 MG/1 ML VIAL IM ONE (20:57)
[2020-06-26] MEDS ORDERED: KETOROLAC TROMETHAMINE 30 MG/1 ML VIAL ONE (21:08)
== END 2020-06-26 21:15 | disposition home or self-care (01) ==
LOC: JER 19:09
PROC: 3E0233Z Introduction of Anti-inflammatory into Muscle, Percutaneous Approach (ICD-10-PCS; principal; 2020-06-26)
DX: M54.5 Low back pain (principal); M25.511 Pain in right shoulder; M25.531 Pain in right wrist
CPT/HCPCS: 36415; 72100-TC-FY; 73030-TC-RT-FY; 73110-TC-RT-FY; 84703; 99285-25

== ENCOUNTER 2020-11-20 22:03 | Inpatient (IN) | payer OTHER ==
[2020-11-20 22:21] VITALS: BMI 22.3
[2020-11-20] MEDS ORDERED: ALBUTEROL SO4 0.083% IH SOL 2.5 MG/3 ML VIAL.NEB. NEB ONE (23:01)
[2020-11-21] MEDS ORDERED: DEXAMETHASONE SOD PHOSPHATE 10 MG/1 ML VIAL PO ONE (00:58)
[2020-11-21] MEDS ORDERED: ALBUTEROL SO4 0.083% IH SOL 2.5 MG/3 ML VIAL.NEB. NEB ONE ×3 (00:58→16:38)
[2020-11-21] MEDS ORDERED: SODIUM CHLORIDE FOR INHALATION 3 ML VIAL.NEB IH ONE (03:50)
[2020-11-21 04:45] LABS: BASO % 0.3 % (0-2.0); HEMATOCRIT 32.9 % (32.4-45.2); HEMOGLOBIN 10.9 GM/dL (10.7-15.3); LYMPH % 12.8 % (8-40); MCH 26.6 pg (25.7-33.7); MCHC 33.2 g/dl (32.0-36.0); MEAN CELL VOLUME 80.1 fl (80-96); MEAN PLT VOLUME 8.7 fl (7.5-11.1); MONO % 5.4 % (3.8-10.2); NEUT % 77.5 % (42.8-82.8); PLATELET COUNT 254 K/MM3 (134-434); RBC 4.11 M/mm3 (3.60-5.2); RDW 13.4 % (11.6-15.6); WHITE BLOOD COUNT 8.2 K/mm3 (4.0-10.0)
[2020-11-21 05:05] LABS: PROTHROMBIN TIME (PATIENT) 12.3 SEC (9.7-13.0)
[2020-11-21 05:08] LABS: ACTIVATED PTT 37.5 SECONDS (25.2-36.5)
[2020-11-21 05:11] LABS: ALBUMIN 3.6 g/dl (3.4-5.0); BLOOD UREA NITROGEN 6.3 mg/dL (7-18)
[2020-11-21 05:14] LABS: CREATININE 0.7 mg/dL (0.55-1.3)
[2020-11-21 05:15] LABS: BILIRUBIN,TOTAL 0.2 mg/dL (0.2-1); TOT PROT 7.4 g/dl (6.4-8.2)
[2020-11-21] MEDS ORDERED: AZITHROMYCIN IVPB 500 MG in DEXTROSE 5%-WATER - 250 ML IVPB ONE (05:19)
[2020-11-21] MEDS ORDERED: AZITHROMYCIN 500 MG TABLET ONE (05:20)
[2020-11-21] MEDS ORDERED: AZITHROMYCIN 250 MG TABLET PO ONE (06:29)
[2020-11-21] MEDS ORDERED: ENOXAPARIN NA (PORCINE) 40 MG/0.4 ML DISP.SYRIN SQ ONE (12:14)
[2020-11-21] MEDS ORDERED: methylPREDNISolone NA SUCC 40 MG/1 ML VIAL ONE (12:14)
[2020-11-21] MEDS: ENOXAPARIN NA (PORCINE) 40 MG/0.4 ML DISP.SYRIN SQ SCH (12:20)
[2020-11-21] MEDS: methylPREDNISolone NA SUCC 40 MG/1 ML VIAL IVPUSH SCH ×2 (12:20→19:48)
[2020-11-21] MEDS: ALBUTEROL SO4 0.083% IH SOL 2.5 MG/3 ML VIAL.NEB. NEB PRN (13:28)
[2020-11-21] MEDS ORDERED: ACETAMINOPHEN 325 MG TABLET (FP) PO PRN (18:15)
[2020-11-21] MEDS: oxyCODONE HCL 5 MG TABLET PO PRN (22:16)
[2020-11-21] MEDS: TIZANIDINE HCL 4 MG TABLET PO SCH (22:16)
[2020-11-22] MEDS: methylPREDNISolone NA SUCC 40 MG/1 ML VIAL IVPUSH SCH ×3 (01:40→17:34)
[2020-11-22] MEDS: ALBUTEROL SO4 0.083% IH SOL 2.5 MG/3 ML VIAL.NEB. NEB PRN ×2 (02:44→08:37)
[2020-11-22 08:24] LABS: HEMATOCRIT 30.9 % (32.4-45.2); HEMOGLOBIN 10.3 GM/dL (10.7-15.3); MCH 26.9 pg (25.7-33.7); MCHC 33.4 g/dl (32.0-36.0); MEAN CELL VOLUME 80.5 fl (80-96); MEAN PLT VOLUME 8.8 fl (7.5-11.1); PLATELET COUNT 240 K/MM3 (134-434); RBC 3.84 M/mm3 (3.60-5.2); RDW 13.9 % (11.6-15.6)
[2020-11-22 08:50] LABS: BLOOD UREA NITROGEN 10.7 mg/dL (7-18)
[2020-11-22 08:53] LABS: CALCIUM 8.5 mg/dL (8.5-10.1); CREATININE 0.6 mg/dL (0.55-1.3); PHOSPHOROUS 3.6 mg/dL (2.5-4.9)
[2020-11-22] MEDS: PANTOPRAZOLE 40 MG TABLET PO SCH (10:07)
[2020-11-22] MEDS: ENOXAPARIN NA (PORCINE) 40 MG/0.4 ML DISP.SYRIN SQ SCH (10:07)
[2020-11-22] MEDS: AZITHROMYCIN 250 MG TABLET PO SCH (10:07)
[2020-11-22] MEDS: oxyCODONE HCL 5 MG TABLET PO PRN ×2 (10:16→22:33)
[2020-11-22] MEDS ORDERED: PT OWN MED DRAWER 7, Y5N ONE ×2 (20:53→22:25)
[2020-11-22] MEDS: TIZANIDINE HCL 4 MG TABLET PO SCH (22:33)
[2020-11-23] MEDS: methylPREDNISolone NA SUCC 40 MG/1 ML VIAL IVPUSH SCH ×3 (02:09→17:31)
[2020-11-23 08:46] LABS: BASO % 0.1 % (0-2.0); HEMATOCRIT 36.2 % (32.4-45.2); HEMOGLOBIN 11.8 GM/dL (10.7-15.3); LYMPH % 5.5 % (8-40); MCH 26.5 pg (25.7-33.7); MCHC 32.5 g/dl (32.0-36.0); MEAN CELL VOLUME 81.6 fl (80-96); MEAN PLT VOLUME 8.7 fl (7.5-11.1); MONO % 2.5 % (3.8-10.2); NEUT % 91.9 % (42.8-82.8); PLATELET COUNT 283 K/MM3 (134-434); RBC 4.44 M/mm3 (3.60-5.2); RDW 14.2 % (11.6-15.6); WHITE BLOOD COUNT 16.9 K/mm3 (4.0-10.0)
[2020-11-23] MEDS: ALBUTEROL SO4 0.083% IH SOL 2.5 MG/3 ML VIAL.NEB. NEB PRN ×2 (08:53→12:22)
[2020-11-23 09:06] LABS: CALCIUM 8.9 mg/dL (8.5-10.1)
[2020-11-23 09:07] LABS: ALBUMIN 3.5 g/dl (3.4-5.0); BLOOD UREA NITROGEN 13.4 mg/dL (7-18); MAGNESIUM 2.5 mg/dL (1.8-2.4)
[2020-11-23 09:10] LABS: CREATININE 0.7 mg/dL (0.55-1.3); PHOSPHOROUS 3.4 mg/dL (2.5-4.9)
[2020-11-23 09:11] LABS: BILIRUBIN,TOTAL 0.3 mg/dL (0.2-1)
[2020-11-23 09:12] LABS: TOT PROT 7.6 g/dl (6.4-8.2)
[2020-11-23 09:46] LABS: ANISOCYTOSIS 0; MACROCYTOSIS 0; PLATELET ESTIMATE NORMAL
[2020-11-23] MEDS: AZITHROMYCIN 250 MG TABLET PO SCH (09:51)
[2020-11-23] MEDS: PANTOPRAZOLE 40 MG TABLET PO SCH (09:51)
[2020-11-23] MEDS: ENOXAPARIN NA (PORCINE) 40 MG/0.4 ML DISP.SYRIN SQ SCH (09:51)
[2020-11-23] MEDS: ACETAMINOPHEN 325 MG TABLET (FP) PO PRN (09:52)
[2020-11-23] MEDS: oxyCODONE HCL 5 MG TABLET PO PRN (12:11)
[2020-11-23] MEDS ORDERED: PT OWN MED DRAWER 7, Y5N ONE (21:36)
[2020-11-23] MEDS ORDERED: LIDOCAINE PATCH REMOVAL MC SCH (22:00)
[2020-11-23] MEDS ORDERED: LIDOCAINE 5% TOPICAL PATCH TP ONE (22:06)
[2020-11-23] MEDS ORDERED: ACETAMINOPHEN 500 MG TABLET (FP) PO ONE (22:06)
[2020-11-23] MEDS: BUDESONIDE/FORMETEROL FUMARATE 160/4.5 mcg INHALER IH SCH (22:19)
[2020-11-23] MEDS: TIZANIDINE HCL 4 MG TABLET PO SCH (22:20)
[2020-11-24] MEDS: methylPREDNISolone NA SUCC 40 MG/1 ML VIAL IVPUSH SCH ×2 (02:27→09:49)
[2020-11-24 06:11] LABS: SARS-CoV-2 NAA Not Detected (Not Detected)
[2020-11-24 07:48] LABS: BASO % 0.1 % (0-2.0); HEMATOCRIT 32.9 % (32.4-45.2); HEMOGLOBIN 10.8 GM/dL (10.7-15.3); LYMPH % 8.3 % (8-40); MCH 26.6 pg (25.7-33.7); MEAN CELL VOLUME 80.7 fl (80-96); MEAN PLT VOLUME 8.7 fl (7.5-11.1); MONO % 5.5 % (3.8-10.2); NEUT % 86.1 % (42.8-82.8); PLATELET COUNT 249 K/MM3 (134-434); RBC 4.07 M/mm3 (3.60-5.2); RDW 13.7 % (11.6-15.6); WHITE BLOOD COUNT 11.9 K/mm3 (4.0-10.0)
[2020-11-24 08:02] LABS: CHLORIDE 101 mmol/L (98-107); SODIUM 136 mmol/L (136-145)
[2020-11-24 08:26] LABS: ANION GAP 5 MMOL/L (8-16); BLOOD UREA NITROGEN 17.6 mg/dL (7-18); CALCIUM 8.3 mg/dL (8.5-10.1); CO2 30 mmol/L (21-32); GLUCOSE,RANDOM 121 mg/dL (74-106); MAGNESIUM 2.5 mg/dL (1.8-2.4)
[2020-11-24 08:29] LABS: CREATININE 0.6 mg/dL (0.55-1.3); SGPT/ALT 23 U/L (13-61)
[2020-11-24 08:30] LABS: PHOSPHOROUS 3.8 mg/dL (2.5-4.9)
[2020-11-24 08:31] LABS: BILIRUBIN,TOTAL 0.3 mg/dL (0.2-1); SGOT/AST 11 U/L (15-37); TOT PROT 6.4 g/dl (6.4-8.2)
[2020-11-24 08:32] LABS: ALK PHOS 69 U/L (45-117)
[2020-11-24 08:34] LABS: LDH 153 U/L (84-246)
[2020-11-24] MEDS: PANTOPRAZOLE 40 MG TABLET PO SCH (09:48)
[2020-11-24] MEDS: ENOXAPARIN NA (PORCINE) 40 MG/0.4 ML DISP.SYRIN SQ SCH (09:48)
[2020-11-24] MEDS: BUDESONIDE/FORMETEROL FUMARATE 160/4.5 mcg INHALER IH SCH (09:58)
[2020-11-24] MEDS: ACETAMINOPHEN 325 MG TABLET (FP) PO PRN (10:01)
[2020-11-24 11:42] VITALS: BP 110/64; PULSE 88; TEMP 98
== END 2020-11-24 15:22 | disposition home or self-care (01) | DRG 141 ==
LOC: JER 22:03 → JERBED 11-21 05:52 → J7W 11-21 18:53
PROVIDERS: ADMIT Internal Medicine; ATTEND Internal Medicine
DX: J45.901 Unspecified asthma with (acute) exacerbation (principal); J96.01 Acute respiratory failure with hypoxia; B94.8 Sequelae of other specified infectious and parasitic diseases
CPT/HCPCS: 36415; 71046-TC-FY; 80048; 80053; 82550; 82553; 82728; 83615; 83735; 84100; 84484; 84703; 85025; 85027; 85379; 85610; 85730; 86140; 86738; 86769; 87804; 87899; 93005; 93010; 94640; 94761; 99285-25; C9803; J1100; U0003; U0005

== ENCOUNTER 2022-02-01 14:11 | Emergency (ER) | payer OTHER ==
[2022-02-01 15:24] VITALS: BP 136/69; PULSE 82; TEMP 98.6; BMI 27.4
[2022-02-01] MEDS ORDERED: ACETAMINOPHEN 1000 MG/100 ML BAG IVPB ONE (16:17)
[2022-02-01] MEDS ORDERED: METOCLOPRAMIDE HCL INJECTION 10 MG/2 ML VIAL IVPUSH ONE (16:17)
[2022-02-01] MEDS ORDERED: SODIUM CHLORIDE 1,000 ML IV STA (16:17)
[2022-02-01] MEDS ORDERED: FAMOTIDINE 20 MG/50 ML IVPB 20 MG/50 ML MG IVPB ONE ×2 (16:18→16:33)
[2022-02-01] MEDS ORDERED: ACETAMINOPHEN INJECTION 100 ML IVPB ONE (16:33)
[2022-02-01] MEDS ORDERED: METOCLOPRAMIDE HCL INJECTION 10 MG/2 ML VIAL ONE (16:33)
[2022-02-01 17:21] LABS: BASO % 0.5 % (0-2.0); EOS % 0.2 % (0-4.5); HEMATOCRIT 36.4 % (32.4-45.2); HEMOGLOBIN 11.8 GM/dL (10.7-15.3); LYMPH % 9.5 % (8-40); MCHC 32.5 g/dl (32.0-36.0); MEAN CELL VOLUME 73.7 fl (80-96); MEAN PLT VOLUME 8.4 fl (7.5-11.1); MONO % 4.1 % (3.8-10.2); NEUT % 85.7 % (42.8-82.8); PLATELET COUNT 329 10^3/uL (134-434); RBC 4.94 M/mm3 (3.60-5.2); RDW 15.1 % (11.6-15.6); WHITE BLOOD COUNT 10.3 K/mm3 (4.0-10.0)
[2022-02-01 17:40] LABS: CALCIUM 9.3 mg/dL (8.5-10.1)
[2022-02-01 17:41] LABS: BLOOD UREA NITROGEN 14.1 mg/dL (7-18)
[2022-02-01 17:44] LABS: CREATININE 0.6 mg/dL (0.55-1.3)
[2022-02-01 17:45] LABS: BILIRUBIN,TOTAL 0.7 mg/dL (0.2-1); TOT PROT 8.4 g/dl (6.4-8.2)
== END 2022-02-01 17:00 | disposition left against medical advice (07) ==
LOC: JER 14:11
PROC: 3E033GC Introduction of Other Therapeutic Substance into Peripheral Vein, Percutaneous Approach (ICD-10-PCS; principal; 2022-02-01)
DX: R10.84 Generalized abdominal pain (principal)
CPT/HCPCS: 36415; 71046-TC-FY; 74018-TC-FY; 80053; 83690; 85025; 93005; 93010; 99285-25